=== PATIENT | female | born 1990 | race American Indian/Alaskan Native ===

== ENCOUNTER 2021-10-23 09:29 | Day surgery (SDC) | payer OTHER ==
[2021-10-23] MEDS ORDERED: HYDROmorphone 1 MG/1 ML INJ IV PRN ×2 (10:17)
[2021-10-23] MEDS ORDERED: ONDANSETRON 4 MG/2 ML INJ IV PRN (10:17)
--- NOTE | 2021-10-23 10:18 | Anesthesia Day of Surgery ---
Anesthesia Day of Surgery - Day of Surgery Patient Examined: Yes Patient H&P Reviewed: Yes Patient is NPO: Yes
--- NOTE | 2021-10-23 10:19 | Anesthesia Consultation ---
Anesthesia Consult and Med Hx Date of service: 10/23/21 - Airway Anesthetic Teeth Evaluation: Chipped ROM Head & Neck: Adequate Mental/Hyoid Distance: Adequate Mallampati Class: Class II Intubation Access Assessment: Good - Pre-Operative Health Status ASA Pre-Surgery Classification: ASA3 Proposed Anesthetic Plan: General - Pulmonary Hx Smoking: No Hx Asthma: Yes (Last treated 1 year ago) - Cardiovascular System Hx Hypertension: No - Central Nervous System Hx Psychiatric Problems: Yes (Anxiety/Depression) - Hematic Hx Sickle Cell Disease: No - Other Systems Hx Alcohol Use: Yes (Occas) Hx Cancer: No Hx Obesity: Yes
[2021-10-23] MEDS ORDERED: LACTATED RINGERS 1,000 ML IV SCH (10:30)
[2021-10-23 10:46] LABS: Mean Corpuscular HGB Conc 31 % (30-34); Mean Corpuscular Volume 78 fl (79-97); Platelet Count 461 K/mm3 (140-440); Red Blood Count 4.66 M/mm3 (3.65-5.03); Red Cell Distribution Width 16.5 % (13.2-15.2)
[2021-10-23 10:48] LABS: Hematocrit 36.2 % (30.3-42.9); Hemoglobin 11.1 gm/dl (10.1-14.3)
[2021-10-23 10:49] VITALS: BP 121/78
[2021-10-23] MEDS ORDERED: fentaNYL 100 MCG/2 ML INJ ONE (14:39)
[2021-10-23] MEDS ORDERED: propofoL 200 MG/20 ML VIAL IV ONE (14:39)
[2021-10-23] MEDS ORDERED: LIDOCAINE MPF (2%) 20 MG/1 ML VIAL 5 ML ONE (14:39)
--- NOTE | 2021-10-23 14:46 | Operative Report ---
Operative Report Operative Report: Preoperative diagnosi: Pelvic pain, menorrhagia Postoperative diagnosis: Same Procedure: Hysteroscopy dilation and curettage Surgeon: Dr. Maria M Mcallister Anesthesia: GETA EBL: Minimal Urine output: None IV fluids:250ml Complications: none Finding: diffuse polypoid endometrial tissue,no discureet endometrial fibroids or pathology Procedure: Patient was counseled in preop holding area about risks benefits possible complications as well as alternatives to the procedure. Informed consent was obtained. She was taken to the OR where she received excellent general endotracheal anesthesia. She was then placed in a dorsal lithotomy position. Exam under anesthesia revealed normal uterus, midline, no adnexal masses. Patient was then prepped and draped in a sterile fashion. A timeout was verified. Patient was straight cathed with a red rubber catheter, with ....... urine obtained. A speculum was placed in the vaginal vault, the cervix was noted to be pink with no lesions. A single-tooth tenaculum was placed on the anterior lip of the cervix and the endometrium sounded to 7cm.The cervix was then dilated to allow for the passage of the hysteroscope. The uterus was hydrodistended, the endometrium was noted to be polypoid. Sharp curettage was performed with the Kevorkian curette. Endometrial samplings were sent to pathology. At the completion of the procedure the hysteroscope, tenaculum, and speculum were removed from the uterus cervix and vagina respectively. EBL minimal. Patient extubated and taken to the PACU in stable condition. Patient's family notified of stable condition for completion of the procedure. All sponge needle instrument counts correct x2. Patient will follow-up in the outpatient setting in 1 week. Elizabeth RIGGS
[2021-10-23] MEDS ORDERED: dexAMETHasone 20 MG/5 ML VIAL ONE (14:49)
[2021-10-23] MEDS ORDERED: ONDANSETRON 4 MG/2 ML INJ ONE (14:49)
[2021-10-23] MEDS ORDERED: LACTATED RINGERS 1,000 ML ONE (15:37)
[2021-10-23] MEDS ORDERED: KETOROLAC 30 MG/1 ML INJ ONE (15:37)
[2021-10-23] MEDS ORDERED: HYDROcodone/ACETAMINOPHEN 7.5-325MG TAB ONE (16:26)
[2021-10-23] MEDS ORDERED: HYDROcodone/ACETAMINOPHEN 7.5-325MG TAB PO ONE (16:30)
--- NOTE | 2021-10-23 17:13 | Post Anesthesia Evaluation ---
- Post Anesthesia Evaluation Patient Participated: Yes Airway Patent: Yes Stable Respiratory Function: Yes Nausea/Vomiting: No Temp > 96.8F: Yes Pain Manageable: Yes Adequeate Hydration: Yes Anesthesia Complications: No Block Receding Appropriately: Not Applicable Patient on Ventilator: No
== END 2021-10-23 09:30 | disposition home or self-care (01) ==
LOC: OR 09:29
PROVIDERS: ATTEND Obstetrics & Gynecology
DX: N92.0 Excessive and frequent menstruation with regular cycle (principal); N84.0 Polyp of corpus uteri; J45.909 Unspecified asthma, uncomplicated; F41.9 Anxiety disorder, unspecified; F32.9 Major depressive disorder, single episode, unspecified; E66.9 Obesity, unspecified; Z72.89 Other problems related to lifestyle; Z79.899 Other long term (current) drug therapy; Z98.890 Other specified postprocedural states; Z68.43 Body mass index [BMI] 50.0-59.9, adult
CPT/HCPCS: 36415; 58558; 81025; 85027; 88305; J1100; J1885; J2405; J2704; J3010; J3490; J7120